=== PATIENT | female | born 1935 | race Two or more races ===

== ENCOUNTER 2018-03-20 16:31 | Outpatient (CLI) | payer OTHER | END 2018-03-20 16:50 | disposition home or self-care (01) | LOC: LAB 16:31 | DX: E55.9 Vitamin D deficiency, unspecified (principal); E83.42 Hypomagnesemia; E56.1 Deficiency of vitamin K; E03.8 Other specified hypothyroidism; B95.62 Methicillin resistant Staphylococcus aureus infection as the cause of diseases classified elsewhere; N39.0 Urinary tract infection, site not specified; M85.88 Other specified disorders of bone density and structure, other site ==